=== PATIENT | female | born 1940 | race Two or more races ===

== ENCOUNTER 2017-11-15 10:12 | Emergency (ER) | payer OTHER ==
[~2017-11-15] VITALS: Ht 152.4 cm; Wt 79.4 kg
[2017-11-15 10:21] VITALS: Ht 152.4 cm; Wt 79.4 kg
[2017-11-15 12:01] VITALS: BP 128/58
== END 2017-11-15 12:01 | disposition home or self-care (01) ==
LOC: ED 10:12
DX: M25.552 Pain in left hip (principal); I10 Essential (primary) hypertension; Z95.0 Presence of cardiac pacemaker